=== PATIENT | male | born 2000 | race Caucasian/White ===

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

== ENCOUNTER 2022-03-03 00:42 | Emergency (ER) | payer BC ==
[2022-03-03 00:54] VITALS: BP 130/77; TEMP 97.4; BMI 23.6
[2022-03-03] MEDS ORDERED: SODIUM CHLORIDE 0.9% 500 ML INFUS.BAG IV ONE ×2 (01:04→02:32)
[2022-03-03] MEDS ORDERED: INSULIN (NOVOLOG) ASPART 100 UNITS/ML 10ML VIAL SQ ONE ×2 (01:21→03:28)
[2022-03-03 01:29] LABS: BASO % 0.5 % (0-2.0); EOS % 0.6 % (0-4.5); HEMATOCRIT 45.5 % (35.4-49); HEMOGLOBIN 14.7 GM/dL (11.7-16.9); LYMPH % 30.2 % (8-40); MCH 28.6 pg (25.7-33.7); MCHC 32.3 g/dl (32.0-35.9); MEAN CELL VOLUME 88.6 fl (80-96); MEAN PLT VOLUME 8.8 fl (7.5-11.1); MONO % 7.3 % (3.8-10.2); NEUT % 61.4 % (42.8-82.8); PLATELET COUNT 303 10^3/uL (134-434); RBC 5.14 M/mm3 (4.00-5.60); RDW 14.2 % (11.9-15.9); WHITE BLOOD COUNT 6.8 K/mm3 (4.0-10.0)
[2022-03-03 01:30] LABS: VENOUS BASE EXCESS -2.9 mmol/L (-2-2); VENOUS O2 SATURATION 92.9 % (70-80); VENOUS PCO2 43.1 mmHg (38-52); VENOUS PH 7.342 (7.310-7.410)
[2022-03-03 01:47] VITALS: PULSE 108; RESP 18
[2022-03-03 01:51] LABS: CALCIUM 9.3 mg/dL (8.5-10.1)
[2022-03-03 01:52] LABS: ALBUMIN 4.2 g/dl (3.4-5.0); BLOOD UREA NITROGEN 9.2 mg/dL (7-18); MAGNESIUM 2.1 mg/dL (1.8-2.4)
[2022-03-03 01:55] LABS: CREATININE 0.9 mg/dL (0.55-1.3)
[2022-03-03 01:56] LABS: BILIRUBIN,TOTAL 0.4 mg/dL (0.2-1)
== END 2022-03-03 03:41 | disposition home or self-care (01) ==
LOC: JER 00:42
PROC: 3E023GC Introduction of Other Therapeutic Substance into Muscle, Percutaneous Approach (ICD-10-PCS; principal; 2022-03-03)
DX: E10.65 Type 1 diabetes mellitus with hyperglycemia (principal)
CPT/HCPCS: 0241U-QW; 36415; 80053; 82010; 82803; 82962; 83735; 85025; 93005; 93010; 99284-25